=== PATIENT | female | born 1985 | race Caucasian/White ===

== ENCOUNTER 2016-07-09 21:44 | Emergency (ER) | payer OTHER ==
--- NOTE | ~2016-07-09 | CR94 ---
[facility]. [facility] A Service of [facility] & [facility] RADIOLOGY TEXT RESULTS PATIENT: RADHA LAM LOCATION: SED : 85 UNIT #: [id number] AGE: [address]: Karla Alonso SEX: F ORDER DR: [id number] [address] [address] [id number] E MR#: [id number] Acc #: [id number] NAME: RADHA LAM. : 1985 SEX: F STUDY DATE/TIME: 07/09/2016 22:03 UNIT: SED ROOM: STUDY DESCRIPTION: CR Elbow Min 3 Views Rt Attending Physician: Karla Alonso Pa-C Ordering Physician: Christopher Huff D.O. Primary Care Physician: No Primary Care Physician MEDICAL IMAGING REPORT This report is preliminary unless electronic signature is present. EXAM Right elbow, 3 views. INDICATION Right elbow pain after injuring it today. COMPARISON STUDIES No comparisons. FINDINGS There is no joint effusion. There is no fracture or dislocation. Soft tissue structures are unremarkable. IMPRESSION Negative. Dictated by... Arturo Gilbert M.D. THIS IS AN ELECTRONICALLY VERIFIED REPORT Arturo Gilbert M.D. at 07/12/2016 8:03 AM LATASHA/lai TD: 07/10/2016 07:09 JOB #: [id number] MEDICAL IMAGING REPORT Page 1 of 1
[~2016-07-09 21:44] MED LIST: ATARAX PO; BACTRIM DS TABL1 TA1 PO; ELIMITE60 GM TOP; FLEXERIL10 MG PO; FLONASE 0.05% N16 GM; IBUPROFEN800 MG PO; MOTRIN600 M1 PO; MOTRIN600 MG PO; NAPROSYN500 MG PO; NO MEDICATIONS; PHENERGAN25 M1 PO; SUDAFED PO; VOLTAREN75 MG PO; ZOLOFT PO
== END 2016-07-09 22:51 | disposition home or self-care (01) ==
LOC: SED 21:44
DX: S59.901A Unspecified injury of right elbow, initial encounter (principal); F17.210 Nicotine dependence, cigarettes, uncomplicated; W22.8XXA Striking against or struck by other objects, initial encounter; Y92.096 Garden or yard of other non-institutional residence as the place of occurrence of the external cause; F32.9 Major depressive disorder, single episode, unspecified
CPT/HCPCS: 73080; 99283

== ENCOUNTER 2016-12-03 02:22 | Emergency (ER) | payer OTHER ==
[~2016-12-03] VITALS: Ht 157.5 cm; Wt 74.8 kg
== END 2016-12-03 03:52 | disposition home or self-care (01) ==
LOC: SED 02:22
DX: L73.9 Follicular disorder, unspecified (principal); F17.200 Nicotine dependence, unspecified, uncomplicated
CPT/HCPCS: 99283